=== PATIENT | male | born 1980 ===

== ENCOUNTER 2021-10-18 17:23 | Emergency (ER) | payer BC ==
--- NOTE | 2021-10-18 17:33 | PCM.EKG ---
#1 Interpretation Time: 17:24 EKG Interpretation Comments: 63, normal sinus rhythm, RSR prime, minor J-point elevation in anterior precordial leads in the setting of right bundle branch block with normal inflection point. No reciprocal changes
[2021-10-18] MEDS ORDERED: Nitroglycerin 0.4 MG Tab.SL SL ONE (18:01)
[2021-10-18] MEDS ORDERED: Aspirin 325 MG Tab PO ONE (18:01)
--- NOTE | 2021-10-18 18:07 | EDM.PDOC ---
<Dmitry Mcdaniel - Last Filed: 10/18/21 21:22> ED HPI GENERAL MEDICAL PROBLEM - General Chief Complaint: Chest Pain Stated Complaint: CHEST PAINS Time Seen by Provider: 10/18/21 17:50 - Related Data Allergies Allergy/AdvReac Type Severity Reaction Status Date / Time No Known Allergies Allergy Verified 10/18/21 17:49 Home Meds: Home Meds . [No Known Home Meds] 10/18/21 [History] ED ROS GENERAL - Review of Systems Review Of Systems: Comprehensive ROS is negative, except as noted in HPI. ED EXAM, GENERAL - Physical Exam Exam: See Below #1 Interpretation EKG Interpretation Comments: EKG done 10/18/2021 at 5:24 PM shows sinus rhythm heart rate 65 LA 11/05/2010 QT duration 432 axis 56 prolonged LA interval RSR 1 in V1 and V2 with no prior for comparison impression no obvious injury Course - Re-Assessments/Exams Free Text/Narrative Re-Assessment/Exam: 10/18/21 19:23 Nitroglycerin and aspirin failed to help this patient. Feels like he is having acid reflux which he has had in the past. Protonix and a GI cocktail were ordered. However he of instigate after we see his troponin and repeat troponin. 10/18/21 19:34 This is comfortable and resting with his fiance in the room. He plans to go home if his troponin does not go up. Second troponin was ordered 3 hours after the first. Patient is low risk and will try proton pump inhibitor for presumed acid reflux esophagitis. 10/18/21 21:22 Patient is only on famotidine for his indigestion. He is low risk for heart problems and his repeat troponin is also negative. He'll be discharged with instructions to start a PPI and as acids as needed and follow-up with primary care. Departure - Departure Time of Disposition: 21:23 Disposition: Home, Self-Care 01 Condition: Good Clinical Impression: Gastroesophageal reflux disease - Discharge Information Instructions: Gastroesophageal Reflux Disease, Adult, [id number] Referrals: PCP,None [Primary Care Provider] - Forms: ED Department Discharge Additional Instructions: If worseCarrie antiacids to use when your pain is worse. Start a proton pump inhibitor which is omeprazole pantoprazole or some such. The pharmacist can show you which of the [id number] medicines is least costly to you. Return if worse. Follow-up with primary care. [facility] - Primary [facility] [address] [place] [address] [facility] [address] [place] [address] The following information is given to patients seen in the emergency department who are being discharged to home. This information is to outline your options for follow-up care. We provide all patients seen in our emergency department with a follow-up referral. The need for follow-up, as well as the timing and circumstances, are variable depending upon the specifics of your emergency department visit. If you don't have a primary care physician on staff, we will provide you with a referral. We always advise you to contact your personal physician following an emergency department visit to inform them of the circumstance of the visit and for follow-up with them and/or the need for any referrals to a consulting specialist. The emergency department will also refer you to a specialist when appropriate. This referral assures that you have the opportunity for follow-up care with a specialist. All of these measure are taken in an effort to provide you with optimal care, which includes your follow-up. Under all circumstances we always encourage you to contact your private physician who remains a resource for coordinating your care. When calling for follow-up care, please make the office aware that this follow-up is from your recent emergency room visit. If for any reason you are refused follow-up, please contact the [facility] Emergency Department at and asked to speak to the emergency department charge nurse. <German Ramey - Last Filed: 10/19/21 07:56> ED HPI GENERAL MEDICAL PROBLEM - History of Present Illness INITIAL COMMENTS - FREE TEXT/NARRATIVE: 40 male presents to the emergency department complaint of chest pain. Patient states he has had it on and off in the past and only one time it was this bad. He states he is on a conference call with work and he is feeling a lot of stress and overwhelmed and started developing chest tightness. He states that it was lightheaded and short of breath and had some discomfort down his left arm. Patient has a history of high cholesterol but no diabetes or hypertension. Patient denies any recent cough cold or productive sputum. He is not vaccinated against Covid. No history of any blood clot. No unilateral leg swelling. No recent travel ,trauma ,injury, cancer. 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 He states that he has had some twitching in his eye because of stress he thought for a couple of weeks now. chest Pain Score (Numeric/FACES): 5 Past Medical History HEENT History: Reports: None Cardiovascular History: Reports: High Cholesterol Respiratory History: Reports: None Gastrointestinal History: Reports: None Genitourinary History: Reports: None Musculoskeletal History: Reports: None Neurological History: Reports: None Psychiatric History: Reports: None Endocrine/Metabolic History: Reports: None Hematologic History: Reports: None Immunologic History: Reports: None Oncologic (Cancer) History: Reports: None Dermatologic History: Reports: None - Infectious Disease History Infectious Disease History: Reports: None - Past Surgical History Head Surgeries/Procedures: Reports: None HEENT Surgical History: Reports: None Cardiovascular Surgical History: Reports: None Respiratory Surgical History: Reports: None GI Surgical History: Reports: None Male Surgical History: Reports: None Endocrine Surgical History: Reports: None Neurological Surgical History: Reports: None Musculoskeletal Surgical History: Reports: None Oncologic Surgical History: Reports: None Dermatological Surgical History: Reports: None Social & Family History - Family History Family Medical History: No Pertinent Family History - Caffeine Use Caffeine Use: Reports: None - Recreational Drug Use Recreational Drug Use: No ED ROS GENERAL - Review of Systems Constitutional: Denies: Fever, Chills HEENT: Reports: No Symptoms Respiratory: Reports: Shortness of Breath. Denies: Cough, Sputum Cardiovascular: Reports: Chest Pain GI/Abdominal: Reports: No Symptoms Musculoskeletal: Reports: Arm Pain Skin: Reports: No Symptoms Neurological: Reports: Tingling Psychiatric: Reports: Other (Patient states she was feeling overwhelmed) ED EXAM, GENERAL - Physical Exam Exam: See Below Free Text/Narrative:: CONSTITUTIONAL: well appearing in no acute distress SKIN: Warm, dry, and intact without rash HENT: Normocephalic, atraumatic, PULMONARY: clear to ausculation bilaterally. No rales, rhonchi, wheezing CARDIOVASCULAR: regular rate, No murmur, rubs, or gallops GASTROINTESTINAL: soft, nondistended, nontender NEUROLOGIC: normal speech, II-XII intact. light touch/5/5 power equal and symmetric in upper and lower extremities without deficit MUSCULOSKELETAL: no gross deformities, atraumatic PSYCHIATRIC: normal mood and affect Course - Vital Signs Text/Narrative:: Differential diagnosis: ACS, anxiety, PE, pneumonia, Covid, dissection, other Patient presents as outlined above. Patient with a heart score 1. Patient will have laboratory testing and chest x-ray done. The current plan discussed with the patient and plan was to do a delta troponin. Patient be signed out to Dr. Mcdaniel pending final treatment decision evaluation at 7 PM Last Recorded V/S: Last Vital Signs Temp 36.6 C 10/18/21 17:23 Pulse 74 10/18/21 21:38 Resp 18 10/18/21 21:38 BP 141/101 H 10/18/21 21:38 Pulse Ox 98 10/18/21 21:38 - Orders/Labs/Meds Labs: Laboratory Tests 10/18/21 10/18/21 10/18/21 Range/Units 17:36 17:36 17:36 WBC 7.14 (4.0-11.0) K/uL RBC 4.80 (4.50-5.90) M/uL Hgb 15.0 (13.0-17.0) g/dL Hct 42.9 (38.0-50.0) % MCV 89.4 (80.0-98.0) fL MCH 31.3 (27.0-32.0) pg MCHC 35.0 (31.0-37.0) g/dL RDW Std Deviation 40.4 (28.0-62.0) fl RDW Coeff of [place] 12 (11.0-15.0) % Plt Count 336 (150-400) K/uL MPV 11.10 (7.40-12.00) fL Neut % (Auto) 42.1 L (48.0-80.0) % Lymph % (Auto) 42.6 H (16.0-40.0) % [place] % (Auto) 9.7 (0.0-15.0) % Eos % (Auto) 5.0 (0.0-7.0) % Baso % (Auto) 0.6 (0.0-1.5) % Neut # (Auto) 3.0 (1.4-5.7) K/uL Lymph # (Auto) 3.0 H (0.6-2.4) K/uL [place] # (Auto) 0.7 (0.0-0.8) K/uL Eos # (Auto) 0.4 (0.0-0.7) K/uL Baso # (Auto) 0.0 (0.0-0.1) K/uL Nucleated RBC % 0.0 /100WBC Nucleated RBCs # 0 K/uL Sodium 137 (136-148) mmol/L Potassium 4.0 (3.5-5.1) mmol/L Chloride 103 (98-107) mmol/L Carbon Dioxide 24.4 (21.0-32.0) mmol/L BUN 18 (7.0-18.0) mg/dL Creatinine 0.9 (0.8-1.3) mg/dL Est Cr Clr Drug Dosing 96.49 mL/min Estimated GFR (MDRD) > 60.0 ml/min Glucose 86 (74-106) mg/dL Calcium 8.5 (8.5-10.1) mg/dL Total Bilirubin 0.4 (0.2-1.0) mg/dL AST 34 (15-37) IU/L ALT 41 (14-63) IU/L Alkaline Phosphatase 86 (46-116) U/L Troponin I < 0.050 (0.000-0.056) ng/mL B-Natriuretic Peptide 3 (<100) PG/ML Total Protein 7.4 (6.4-8.2) g/dL Albumin 4.0 (3.4-5.0) g/dL Globulin 3.4 (2.6-4.0) g/dL Albumin/Globulin Ratio 1.2 (0.9-1.6) SARS-CoV-2 RNA (GEORGINA) (NEGATIVE) 10/18/21 10/18/21 Range/Units 19:40 20:30 WBC (4.0-11.0) K/uL RBC (4.50-5.90) M/uL Hgb (13.0-17.0) g/dL Hct (38.0-50.0) % MCV (80.0-98.0) fL MCH (27.0-32.0) pg MCHC (31.0-37.0) g/dL RDW Std Deviation (28.0-62.0) fl RDW Coeff of [place] (11.0-15.0) % Plt Count (150-400) K/uL MPV (7.40-12.00) fL Neut % (Auto) (48.0-80.0) % Lymph % (Auto) (16.0-40.0) % [place] % (Auto) (0.0-15.0) % Eos % (Auto) (0.0-7.0) % Baso % (Auto) (0.0-1.5) % Neut # (Auto) (1.4-5.7) K/uL Lymph # (Auto) (0.6-2.4) K/uL [place] # (Auto) (0.0-0.8) K/uL Eos # (Auto) (0.0-0.7) K/uL Baso # (Auto) (0.0-0.1) K/uL Nucleated RBC % /100WBC Nucleated RBCs # K/uL Sodium (136-148) mmol/L Potassium (3.5-5.1) mmol/L Chloride (98-107) mmol/L Carbon Dioxide (21.0-32.0) mmol/L BUN (7.0-18.0) mg/dL Creatinine (0.8-1.3) mg/dL Est Cr Clr Drug Dosing mL/min Estimated GFR (MDRD) ml/min Glucose (74-106) mg/dL Calcium (8.5-10.1) mg/dL Total Bilirubin (0.2-1.0) mg/dL AST (15-37) IU/L ALT (14-63) IU/L Alkaline Phosphatase (46-116) U/L Troponin I < 0.050 (0.000-0.056) ng/mL B-Natriuretic Peptide (<100) PG/ML Total Protein (6.4-8.2) g/dL Albumin (3.4-5.0) g/dL Globulin (2.6-4.0) g/dL Albumin/Globulin Ratio (0.9-1.6) SARS-CoV-2 RNA (GE[place]GINA) NEGATIVE (NEGATIVE) Meds: Medications Discontinued Medications Generic Name Dose Route Start Last Admin Trade Name Kelli PRN Reason Stop Dose Admin Aspirin 325 mg 10/18/21 18:01 10/18/21 19:10 Aspirin 325 Mg Tab PO 10/18/21 18:02 325 mg ONETIME ONE Administration Alum [place]/Mag [place]/Simeth XS 0 ml 10/18/21 19:21 10/18/21 19:31 15 ml/ Metoclopramide HCl 5 PO 10/18/21 19:22 1 each mg/ Lidocaine HCl 5 ml ONETIME ONE Administration Nitroglycerin 0.4 mg 10/18/21 18:01 10/18/21 19:10 Nitroglycerin 0.4 Mg Tab.Sl SL 10/18/21 18:02 0.4 mg ONETIME ONE Administration Pantoprazole Sodium 40 mg 10/18/21 19:21 10/18/21 19:31 Pantoprazole 40 Mg Tab.Cr PO 10/18/21 19:22 40 mg STAT STA Administration Sepsis Event Note (ED) - Evaluation Sepsis Screening Result: No Definite Risk - Focused Exam Vital Signs: Vital Signs Pulse Resp BP Pulse Ox 10/18/21 21:38 74 18 141/101 H 98
[2021-10-18 18:30] LABS: BLOOD UREA NITROGEN,BUN 18 mg/dL (7.0-18.0); CARBON DIOXIDE,CO2 24.4 mmol/L (21.0-32.0); CHLORIDE,CL 103 mmol/L (98-107); GLUCOSE RANDOM 86 mg/dL (74-106); SODIUM,NA 137 mmol/L (136-148)
--- NOTE | 2021-10-18 19:03 | CR ---
INDICATION: Chest pain TECHNIQUE: Chest 1 view. COMPARISON: None FINDINGS: Cardiovascular and mediastinum: Heart size and vasculature are normal in caliber and appearance. Mediastinum is within normal limits. Lungs and pleural space: Lungs are clear. No sign of infiltrate or mass. No sign of pleural effusion. No pneumothorax. Slight elevation right hemidiaphragm. Bones and soft tissues: No significant findings. IMPRESSION: No acute cardiopulmonary disease. Mildly elevated right hemidiaphragm. Dictated by Marquis Parish MD @ 10/18/2021 7:01:10 PM (Electronically Signed)
[2021-10-18] MEDS ORDERED: Alum Hydro/Mag Hydro/Simeth XS 15 ML, Metoclopramide 5 MG, Lidocaine 2% 5 ML PO ONE ×3 (19:21)
[2021-10-18] MEDS ORDERED: Pantoprazole 40 MG Tab.CR PO STA (19:21)
== END 2021-10-18 21:38 | disposition home or self-care (01) ==
LOC: MW.ED 17:23
DX: K21.9 Gastro-esophageal reflux disease without esophagitis (principal); Z20.822 Contact with and (suspected) exposure to COVID-19
CPT/HCPCS: 36415; 71045; 80053; 83880; 84484; 85025; 87635; 93005; 99285; A9270; U0002

== ENCOUNTER 2022-06-06 16:44 | Emergency (ER) | payer OTHER, BC ==
[2022-06-06] MEDS ORDERED: Ondansetron 4 MG/2 ML SDV IVPUSH ONE (16:54)
[2022-06-06] MEDS ORDERED: Morphine 4 MG/ML VIAL IVPUSH ONE (16:54)
[2022-06-06 17:40] LABS: BLOOD UREA NITROGEN,BUN 16 mg/dL (7.0-18.0); CARBON DIOXIDE,CO2 26.5 mmol/L (21.0-32.0); CHLORIDE,CL 102 mmol/L (98-107); GLUCOSE RANDOM 121 mg/dL (74-106); POTASSIUM,K 3.7 mmol/L (3.5-5.1); SODIUM,NA 139 mmol/L (136-148)
[2022-06-06 17:42] LABS: ESTIMATED GFR 96 mL/min (>60)
[2022-06-06] MEDS ORDERED: Sodium Chloride 0.9% 1,000 ML IV ONE (17:47)
== END 2022-06-06 19:05 | disposition home or self-care (01) ==
LOC: MW.ED 16:44
DX: S80.812A Abrasion, left lower leg, initial encounter (principal); S00.01XA Abrasion of scalp, initial encounter; Z20.822 Contact with and (suspected) exposure to COVID-19; V86.56XA Driver of dirt bike or motor/cross bike injured in nontraffic accident, initial encounter; Y92.410 Unspecified street and highway as the place of occurrence of the external cause
CPT/HCPCS: 36415; 70450; 72125; 73700; 80053; 82550; 83605; 85025; 87635; 96361; 96374; 96375; 99284; J2270; J2405; J7030; U0002